=== PATIENT | female | born 1960 | race Caucasian/White ===

== ENCOUNTER → 2017-12-31 | Outpatient (REF) | payer OTHER | LOC: M LAB REF 01-03 15:23 | DX: L08.9 Local infection of the skin and subcutaneous tissue, unspecified (principal) ==

== ENCOUNTER → 2018-01-10 | Outpatient (REF) | payer OTHER | LOC: M LAB REF 01-11 15:27 | DX: L08.9 Local infection of the skin and subcutaneous tissue, unspecified (principal) | CPT/HCPCS: 87077 ==

== ENCOUNTER → 2018-03-15 | Outpatient (REF) | payer OTHER | LOC: M LAB REF 03-16 17:48 | DX: L08.9 Local infection of the skin and subcutaneous tissue, unspecified (principal) | CPT/HCPCS: 87186 ==

== ENCOUNTER → 2018-04-22 | Outpatient (REF) | payer OTHER | LOC: M LAB REF 17:08 | DX: L08.9 Local infection of the skin and subcutaneous tissue, unspecified (principal) | CPT/HCPCS: 87070 ==

== ENCOUNTER → 2018-05-23 | Outpatient (REF) | payer OTHER | LOC: M LAB REF 15:27 | DX: L08.9 Local infection of the skin and subcutaneous tissue, unspecified (principal) ==

== ENCOUNTER → 2019-01-23 | Outpatient (REF) | payer OTHER | LOC: M LAB REF 15:35 → EEVIPCON 15:35 | PROVIDERS: ATTEND Nurse Practitioner Family | DX: L08.9 Local infection of the skin and subcutaneous tissue, unspecified (principal) ==

== ENCOUNTER → 2019-03-13 | Outpatient (REF) | payer OTHER | LOC: M LAB REF 15:27 | PROVIDERS: ATTEND Nurse Practitioner Family | DX: A49.02 Methicillin resistant Staphylococcus aureus infection, unspecified site (principal) ==

== ENCOUNTER → 2019-04-25 | Outpatient (REF) | payer OTHER | LOC: M LAB REF 15:25 | PROVIDERS: ATTEND Nurse Practitioner Family | DX: L08.9 Local infection of the skin and subcutaneous tissue, unspecified (principal) ==

== ENCOUNTER → 2019-06-08 | Outpatient (REF) | payer OTHER | LOC: M LAB REF 15:35 | PROVIDERS: ATTEND Nurse Practitioner Family | DX: A49.02 Methicillin resistant Staphylococcus aureus infection, unspecified site (principal) ==

== ENCOUNTER → 2021-04-23 | Outpatient (CLI) | payer OTHER ==
--- NOTE | 2021-04-23 10:42 | REPMRS ---
Patient History The patient states she had a clinical breast exam in February 2021. Family history of breast cancer at age 40 in paternal grandmother, colorectal cancer at age 65 in maternal grandfather, ovarian cancer at age 71 in mother. Taking estrogen for 9 years. Tomosynthesis is performed. Volpara breast density is b. [facility] lifetime risk of breast cancer 14.9%. Outside Priors are scanned in with reports. Screening mammo. Patient has had her first Covid Moderna shot January 24 and her second one February 24 both in her left arm. Digital Woman Screen Mammo: April 23, 2021 - Exam #: [id number] Bilateral CC and MLO view(s) were taken. Technologist: Dawn Church, Stewartologist Prior study comparison: April 22, 2020, bilateral digital mammo screening bilat, performed at [facility]. October 24, 2018, bilateral digital mammo screening bilat, performed at [facility]. October 05, 2017, bilateral digital mammo screening bilat, performed at [facility]. FINDINGS: The breast tissue is heterogeneously dense. This may lower the sensitivity of mammography. There has been no change in the appearance of the mammogram from the prior studies. There is a moderate amount of residual fibroglandular tissue which is fairly symmetric. There is no interval development of dominant mass, areas of architectural distortion, or clustered microcalcification typical of malignancy. Assessment: BI-RADS/ACR category 1 mammogram. Negative Mammogram. Recommendation Routine screening mammogram in 1 year (for women over age 40). This mammogram was interpreted with the aid of an FDA-approved computer-aided dectection system. Electronically Signed By: Macario Michel MD 04/23/21 3129
== END ==
LOC: M WHC 08:55
PROVIDERS: ATTEND Advanced Practice Midwife
DX: Z12.31 Encounter for screening mammogram for malignant neoplasm of breast (principal)

== ENCOUNTER → 2022-05-06 | Outpatient (CLI) | payer OTHER | LOC: M WHC 14:28 | PROVIDERS: ATTEND Advanced Practice Midwife | DX: Z12.31 Encounter for screening mammogram for malignant neoplasm of breast (principal) ==

== ENCOUNTER → 2022-05-08 | Outpatient (CLI) | payer OTHER | LOC: M PLALAB 12:54 | PROVIDERS: ATTEND Advanced Practice Midwife | DX: Z80.3 Family history of malignant neoplasm of breast (principal) ==

== ENCOUNTER → 2022-05-13 | Outpatient (CLI) | payer OTHER | LOC: M WHC 14:11 | PROVIDERS: ATTEND Advanced Practice Midwife | DX: Z12.31 Encounter for screening mammogram for malignant neoplasm of breast (principal) ==

== ENCOUNTER → 2022-06-05 | Outpatient (CLI) | payer OTHER | LOC: M PLALAB 11:16 | PROVIDERS: ATTEND Advanced Practice Midwife | DX: Z80.3 Family history of malignant neoplasm of breast (principal) ==

== ENCOUNTER → 2022-07-23 | Outpatient (CLI) | payer OTHER ==
[~2022-07-23] MED LIST: MELO7.5T35
== END ==
LOC: M LABSMTC 10:33
PROVIDERS: ATTEND Anesthesiology
DX: Z01.818 Encounter for other preprocedural examination (principal); Z11.52 Encounter for screening for COVID-19

== ENCOUNTER 2022-07-28 09:16 | Day surgery (SDC) | payer OTHER ==
[~2022-07-28] VITALS: Ht 172.7 cm; Wt 86.2 kg
[~2022-07-28 09:16] MED LIST changes: +NS 1,000 ML IV ONE
[2022-07-28] MEDS ORDERED: ESTR1TAB PO (09:49)
[2022-07-28] MEDS ORDERED: propofoL 200 MG/20 ML VIAL As Ordered ONE ×3 (10:39→10:59)
[2022-07-28] MEDS ORDERED: GLUCAGON INJ 1MG VIAL As Ordered ONE (10:59)
[2022-07-28 11:24] VITALS: BP 83/48
== END 2022-07-28 11:40 | disposition home or self-care (01) ==
LOC: M OPP 09:16
PROVIDERS: ATTEND Internal Medicine Gastroenterology
DX: Z12.11 Encounter for screening for malignant neoplasm of colon (principal); K64.8 Other hemorrhoids; K57.30 Diverticulosis of large intestine without perforation or abscess without bleeding; Z80.3 Family history of malignant neoplasm of breast; Z84.1 Family history of disorders of kidney and ureter; Z80.41 Family history of malignant neoplasm of ovary; Z80.52 Family history of malignant neoplasm of bladder; Z80.7 Family history of other malignant neoplasms of lymphoid, hematopoietic and related tissues; Z82.0 Family history of epilepsy and other diseases of the nervous system; Z79.1 Long term (current) use of non-steroidal anti-inflammatories (NSAID); Z79.818 Long term (current) use of other agents affecting estrogen receptors and estrogen levels; Z88.2 Allergy status to sulfonamides; Z88.8 Allergy status to other drugs, medicaments and biological substances
CPT/HCPCS: 45378; J1610

== ENCOUNTER → 2022-11-30 | Outpatient (CLI) | payer OTHER ==
[~2022-11-30] MED LIST changes: +ESTR1TAB PO; -NS 1,000 ML IV ONE
== END ==
LOC: M WHC 09:32
PROVIDERS: ATTEND Surgery
DX: R92.8 Other abnormal and inconclusive findings on diagnostic imaging of breast (principal)
CPT/HCPCS: 77065; G0279

== ENCOUNTER → 2024-07-06 | Outpatient (CLI) | payer OTHER | LOC: M WHC 12:50 | PROVIDERS: ATTEND Advanced Practice Midwife | DX: Z12.31 Encounter for screening mammogram for malignant neoplasm of breast (principal) ==

== ENCOUNTER → 2025-07-13 | Outpatient (CLI) | payer MEDICARE, OTHER | LOC: M WHC 07:50 | PROVIDERS: ATTEND Advanced Practice Midwife | DX: Z12.31 Encounter for screening mammogram for malignant neoplasm of breast (principal); M81.0 Age-related osteoporosis without current pathological fracture ==

== ENCOUNTER → 2025-08-01 | Outpatient (CLI) | payer MEDICARE, OTHER | LOC: M WHC 12:34 | PROVIDERS: ATTEND Advanced Practice Midwife | DX: N63.10 Unspecified lump in the right breast, unspecified quadrant (principal); R92.8 Other abnormal and inconclusive findings on diagnostic imaging of breast | CPT/HCPCS: 76642; 77065; G0279 ==

== ENCOUNTER → 2025-08-20 | Outpatient (CLI) | payer MEDICARE, OTHER ==
[2025-08-20 12:36] VITALS: TEMP 98.5
[2025-08-20 14:35] VITALS: BP 124/72; O2SAT 100
== END ==
LOC: M WHCPRO 12:24
PROVIDERS: ATTEND Advanced Practice Midwife
DX: C77.3 Secondary and unspecified malignant neoplasm of axilla and upper limb lymph nodes (principal); C50.911 Malignant neoplasm of unspecified site of right female breast; N63.15 Unspecified lump in the right breast, overlapping quadrants; N63.31 Unspecified lump in axillary tail of the right breast

== ENCOUNTER → 2025-09-12 | Outpatient (CLI) | payer MEDICARE, OTHER ==
[2025-09-12 10:42] VITALS: TEMP 98.4
[2025-09-12 11:25] VITALS: BP 118/70; O2SAT 100
== END ==
LOC: M WHCPRO 09:58
PROVIDERS: ATTEND Surgery
DX: C50.111 Malignant neoplasm of central portion of right female breast (principal)
CPT/HCPCS: 19285; 19286; 77065; A4648

== ENCOUNTER → 2025-09-17 | Outpatient (CLI) | payer MEDICARE, OTHER | LOC: M PLARAD 09:07 | PROVIDERS: ATTEND Surgery | DX: C50.111 Malignant neoplasm of central portion of right female breast (principal) | CPT/HCPCS: 78815; A9552 ==

== ENCOUNTER → 2025-09-24 | Outpatient (CLI) | payer MEDICARE, OTHER ==
[~2025-09-24] MED LIST changes: -MELO7.5T35; +MELO7.5T35 PO
== END ==
LOC: M WHC 13:53
PROVIDERS: ATTEND Surgery
DX: C50.111 Malignant neoplasm of central portion of right female breast (principal); R22.32 Localized swelling, mass and lump, left upper limb

== ENCOUNTER 2025-10-04 05:59 | Observation (INO) | payer MEDICARE, OTHER ==
[~2025-10-04] VITALS: Ht 172.7 cm; Wt 88.2 kg
[2025-10-04] VITALS (7 sets, daily range): BP systolic 95–106; BP diastolic 51–59; TEMP 98.1–99; O2SAT 90–95
[2025-10-04] MEDS ORDERED: LIDOCAINE 2% 100 MG/5 ML SDV (FOR ANES.) As Ordered ONE (06:50)
[2025-10-04] MEDS ORDERED: ONDANSETRON 4MG/2ML VIAL As Ordered ONE (06:50)
[2025-10-04] MEDS ORDERED: KETOROLAC 30 MG/ML 1 ML VIAL As Ordered ONE (06:50)
[2025-10-04] MEDS ORDERED: dexAMETHasone 4 MG/ML 1 ML VIAL As Ordered ONE (06:50)
[2025-10-04] MEDS ORDERED: MIDAZOLAM INJ 2 MG/2 ML VIAL As Ordered ONE (06:51)
[2025-10-04] MEDS ORDERED: ROCURONIUM BROMIDE 50MG/5ML VIAL As Ordered ONE (06:51)
[2025-10-04] MEDS ORDERED: dexmedeTOMIDine (4 MCG/ML) 200 MCG/50 ML BTL As Ordered ONE (06:56)
[2025-10-04] MEDS: LR 1,000 ML IV SCH ×2 (07:18→16:39)
[2025-10-04] MEDS: SCOPOLAMINE 1MG TRANSDERMAL PATCH TOP ONE (07:29)
[2025-10-04] MEDS: ceFAZolin SOD 2 GM IV ONCE IV ONE (08:03)
[2025-10-04] MEDS: HEPARIN SOD 5000 UNITS/ML 1 ML VIAL/SYRINGE SQ ONE (08:12)
[2025-10-04] MEDS ORDERED: ACETAMINOPHEN 1000MG/100ML IV BAG As Ordered ONE (08:13)
[2025-10-04] MEDS: METHYLENE BLUE 0.5% (5 MG/ML) 10 ML AMP As Ordered ONE (08:39)
[2025-10-04] MEDS ORDERED: HYDROmorphone HCL 2 MG/ML 1 ML VIAL As Ordered ONE (08:43)
[2025-10-04] MEDS ORDERED: SUGAMMADEX SODIUM 200 MG/2 ML VIAL As Ordered ONE (08:54)
[2025-10-04] MEDS ORDERED: MIRALAX *UNIT DOSE* 17 GM PACKET PO PRN (10:45)
[2025-10-04] MEDS ORDERED: ONDANSETRON 4MG/2ML VIAL IV PRN ×2 (10:45→12:05)
[2025-10-04] MEDS: GENTAMICIN SULF 80 MG/2 ML VIAL As Ordered ONE (10:48)
[2025-10-04] MEDS: traMADol 50 MG TAB PO ONE (12:05)
[2025-10-04] MEDS ORDERED: HYDROMORPHONE HCL 0.5 MG/0.5 ML SYRINGE IV PRN (12:05)
[2025-10-04] MEDS: ceFAZolin SODIUM 2 GM in DEXTROSE 5% (D5W) ADV/MINI-BAG 50 ML IV SCH (16:39)
[2025-10-04] MEDS: ACETAMINOPHEN 325 MG TAB PO PRN (16:42)
[2025-10-04] MEDS: DOCUSATE SODIUM 100 MG CAPSULE PO SCH (20:23)
[2025-10-04] MEDS ORDERED: ACET650T61 PO (23:53)
[2025-10-04] MEDS ORDERED: THERTAB52 PO (23:53)
[2025-10-04] MEDS ORDERED: CHOL10007 PO (23:54)
[2025-10-04] MEDS ORDERED: ASCO500T PO (23:54)
[2025-10-04] MEDS ORDERED: HOME MED LIST COMPLETE! XX SCH (23:55)
[2025-10-05] MEDS ORDERED: MUPI2OI TOP
[2025-10-05 05:56] VITALS: BP 101/55; TEMP 98.9; O2SAT 92
[2025-10-05] MEDS ORDERED: OXYC-517 PO (08:54)
== END 2025-10-05 10:08 | disposition home or self-care (01) ==
LOC: M SDC 05:59 → M MS5PR 15:30
PROVIDERS: ADMIT Surgery; ATTEND Surgery
DX: D05.11 Intraductal carcinoma in situ of right breast (principal); C77.3 Secondary and unspecified malignant neoplasm of axilla and upper limb lymph nodes; N64.89 Other specified disorders of breast; Z88.1 Allergy status to other antibiotic agents; Z88.2 Allergy status to sulfonamides
CPT/HCPCS: 19302; 19318; 88302; 88305; 88307; 96374; 96376; G0378; J0131; J0665; J0666; J0688; J1100; J1171; J1580; J2250; J2405; J3010

== ENCOUNTER 2025-11-01 15:45 | Outpatient (RCR) | payer MEDICARE, OTHER ==
[~2025-11-01 15:45] MED LIST changes: +ACET650T61 PO; +ASCO500T PO; +CHOL10007 PO; +MUPI2OI TOP; +OXYC-517 PO; +THERTAB52 PO
== END 2025-11-14 ==
LOC: M PT 15:45
PROVIDERS: ATTEND Surgery
DX: I89.0 Lymphedema, not elsewhere classified (principal)